=== PATIENT | male | born 1985 | race Caucasian/White ===

== ENCOUNTER 2022-11-11 21:50 | Emergency (ER) | payer MEDICAID ==
[~2022-11-11] VITALS: Ht 177.8 cm; Wt 67.1 kg
[2022-11-11 22:18] VITALS: BP 116/51; PULSE 98; RESP 16; TEMP 97.6; O2SAT 96
[2022-11-12] MEDS ORDERED: BACL10TA4 PO (00:37)
[2022-11-12] MEDS ORDERED: GABA-636 PO (00:37)
[2022-11-12 00:45] VITALS: BP 116/51; PULSE 98; RESP 16; TEMP 97.6; O2SAT 96
--- NOTE | 2022-11-12 00:45 | NUR ---
Patient discharged with v/s stable. Written and verbal after care instructions given and explained BY DR. ARMENDARIZ Patient alert, oriented and verbalized understanding of instructions. Ambulatory with steady gait. All questions addressed prior to discharge. ID band removed. Patient advised to follow up with PMD. Rx of BACLOFEN, GABAPENTIN given. Patient educated on indication of medication including possible reaction and side effects. Opportunity to ask questions provided and answered.
== END 2022-11-12 00:45 | disposition home or self-care (01) ==
LOC: MED 21:50
DX: G50.0 Trigeminal neuralgia (principal); Z79.899 Other long term (current) drug therapy
CPT/HCPCS: 99283